=== PATIENT | male | born 1985 | race Caucasian/White ===

== ENCOUNTER 2018-08-20 10:03 | Emergency (ER) | payer BC, MEDICAID ==
[~2018-08-20] VITALS: Ht 182.9 cm; Wt 72.0 kg
[~2018-08-20 10:03] MED LIST: HYDR-4383 PO; ONDA8TAB13 PO; PENI500T2 PO
[2018-08-20 10:05] VITALS: BP 115/75
[2018-08-20] MEDS ORDERED: CLIN300C85 PO (11:16)
== END 2018-08-20 11:35 | disposition home or self-care (01) ==
LOC: ER 10:04
DX: R21 Rash and other nonspecific skin eruption (principal); Z90.49 Acquired absence of other specified parts of digestive tract; Z79.899 Other long term (current) drug therapy
CPT/HCPCS: 99283

== ENCOUNTER 2018-08-23 11:54 | Emergency (ER) | payer BC ==
[~2018-08-23] VITALS: Ht 182.9 cm; Wt 66.9 kg
[~2018-08-23 11:54] MED LIST changes: +CLIN300C85 PO
[2018-08-23] MEDS ORDERED: PRED20TA PO (12:35)
[2018-08-23 12:48] VITALS: BP 123/70
== END 2018-08-23 12:45 | disposition home or self-care (01) ==
LOC: ER 11:54
DX: S30.860A Insect bite (nonvenomous) of lower back and pelvis, initial encounter (principal); S50.861A Insect bite (nonvenomous) of right forearm, initial encounter; R00.0 Tachycardia, unspecified; F11.10 Opioid abuse, uncomplicated; Z79.899 Other long term (current) drug therapy; Z90.49 Acquired absence of other specified parts of digestive tract; W57.XXXA Bitten or stung by nonvenomous insect and other nonvenomous arthropods, initial encounter; Y93.89 Activity, other specified; Y92.89 Other specified places as the place of occurrence of the external cause; Y99.8 Other external cause status
CPT/HCPCS: 99283

== ENCOUNTER 2022-11-18 13:57 | Inpatient (IN) | payer BC, MEDICAID, SELFPAY ==
[~2022-11-18] VITALS: Ht 182.9 cm; Wt 68.2 kg
[~2022-11-18 13:57] MED LIST changes: +CLIN-97 PO; -CLIN300C85 PO
[2022-11-18] MEDS ORDERED: normal saline 1000ml 1,000 ML IV ONE ×3 (14:20→16:10)
--- NOTE | 2022-11-18 15:00 | NUR ---
PT IS AO2 SPEAKS SOFTLY. PERRLA 4MM. SKIN HAS SEVERAL HEALED WOUNDS BILATERALLY. RESP EVEN UNLABORED.
[2022-11-18] MEDS ORDERED: ondansetron/PF 4mg/2ml inj IV ONE ×2 (15:10→16:50)
[2022-11-18 16:07] LABS: EOSINOPHILS % (AUTO) 0 % (0-6); MEAN PLATELET VOLUME 7.4 FL (7.4-10.4)
[2022-11-18 16:08] LABS: BASOPHILS % (AUTO) 0.1 % (0-1); HEMATOCRIT 52.3 % (42.0-52.0); LYMPHOCYTES % (AUTO) 3.7 % (21-51); MEAN CORPUSCULAR HEMOGLOBIN 29.8 PG (27.0-31.0); MEAN CORPUSCULAR HGB CONC 34.4 g/dL (33.0-36.5); MEAN CORPUSCULAR VOLUME 86.5 FL (78-98); MONOCYTES # (AUTO) 2.7 X10'3 (0-0.9); MONOCYTES % (AUTO) 9.8 % (2-12); NEUTROPHILS # (AUTO) 23.3 X10'3 (1.8-7.7); NEUTROPHILS % (AUTO) 86.4 % (42-75); PLATELET COUNT 599 X10'3 (140-440); RED BLOOD COUNT 6.04 X10'6 (4.70-6.10); RED CELL DISTRIBUTION WIDTH 13.4 % (11.5-14.5)
[2022-11-18 16:29] LABS: ALANINE AMINOTRANSFERASE 38 U/L (12-78); ALBUMIN 5.7 G/DL (3.4-5.0); ALBUMIN/GLOBULIN RATIO 1.1 (1.1-1.5); ALKALINE PHOSPHATASE 114 IU/L (46-116); ANION GAP 17 (8-16); ASPARTATE AMINO TRANSFERASE 22 U/L (10-37); BILIRUBIN,TOTAL 0.7 MG/DL (0.1-1.0); BLOOD UREA NITROGEN 32 MG/DL (7-18); BUN/CREATININE RATIO 13.6 (5.4-32.0); CALCIUM 10.6 MG/DL (8.5-10.1); CHLORIDE 91 MMOL/L (99-107); CREATININE 2.36 MG/DL (0.60-1.10); ETHANOL < 0.010 GM/DL (0.0-0.010); GLUCOSE 152 MG/DL (70-104); SODIUM 141 MMOL/L (135-145); TOTAL CARBON DIOXIDE 32.6 MMOL/L (24-32); TOTAL PROTEIN 10.8 G/DL (6.4-8.2); eGFR 31 ML/MIN
[2022-11-18 16:33] LABS: PLATELET ESTIMATE INCREASED; TOTAL CELLS COUNTED 100
--- NOTE | 2022-11-18 16:34 | NUR ---
PT VOMITED SECOND TIME APPROX 200ML OF GREEN LIQUID. PROVIDER AWARE. AWAITING ORDERS
[2022-11-18 16:38] LABS: POTASSIUM 3.1 MMOL/L (3.5-5.1)
[2022-11-18] MEDS ORDERED: CefTRIAXone/D5W-Rocephin 1gm 50 ML IV ONE (16:50)
[2022-11-18] MEDS ORDERED: potassium Cl 10 mEq/100mL bag IV ONE (16:55)
[2022-11-18 17:14] LABS: MAGNESIUM 2.4 MG/DL (1.5-2.4)
[2022-11-18] MEDS ORDERED: iohexol 300mg/ml 100ml inj. ONE (17:27)
--- NOTE | 2022-11-18 18:21 | NUR ---
UNSUCCESSFUL ATTEMPT AT STRAIGHT CATH. PROVIDER TO BE NOTIFIED.
--- NOTE | 2022-11-18 18:35 | NUR ---
report to cindy for continuation of care
[2022-11-18 19:07] LABS: CLARITY,URINE CLOUDY (Clear); COLOR,URINE YELLOW (Yellow); GLUCOSE, URINE NEGATIVE (Neg); KETONES,URINE 40 mg/dl (Neg); LEUKOCYTE ESTERASE ,URINE NEGATIVE (Neg); NITRITES, URINE NEGATIVE (Neg); OCCULT BLOOD,URINE LARGE (Neg); PH,URINE 5.5 (4.8-8.0); PROTEIN,URINE 100 mg/dl (Neg); UROBILINOGEN,URINE 0.2 E.U/dL (0.2-1.0)
[2022-11-18 19:15] LABS: UA COLLECTION TYPE URINAL
[2022-11-18 19:16] LABS: BACTERIA,URINE 2+ /HPF (Neg); WBC,URINE 0-4 /HPF (0-4)
[2022-11-18 19:17] LABS: AMORPHOUS URATES 1+; COARSE GRANULAR CAST 0-3 /LPF (NEGATIVE); FINE GRANULAR CAST 0-3 /LPF (NEGATIVE); HYALINE CASTS 0-3 /LPF (NEGATIVE); MUCUS STRANDS FEW /LPF (Neg); SQUAMOUS EPITHELIAL CELL,UR FEW /LPF (FEW)
[2022-11-18 19:19] LABS: URINE AMPHETAMINE SCREEN NEGATIVE (Neg); URINE BARBITUATE SCREEN NEGATIVE (Neg); URINE BENZODIAZEPINES SCREEN NEGATIVE (Neg); URINE CANNABINOID SCREEN POSITIVE (Neg); URINE COCAINE SCREEN NEGATIVE (Neg); URINE METHADONE SCREEN NEGATIVE (Neg); URINE OPIATE SCREEN NEGATIVE (Neg); URINE PHENCYCLIDINE SCREEN NEGATIVE (Neg)
[2022-11-18] MEDS ORDERED: normal saline 1000ml 1,000 ML IV SCH (19:35)
[2022-11-18] MEDS ORDERED: metroNIDAZOLE-Flagyl 750mg/NS 150 ML IV ONE (19:55)
[2022-11-18] MEDS ORDERED: potassium CL 10mEq/100ml bag 100 ML IV ONE (20:00)
[2022-11-18] MEDS ORDERED: LIDOcaine 2% 10ml TOPICAL JELLY (Urojet) MM ONE (20:40)
--- NOTE | 2022-11-18 20:53 | NUR ---
CANCEL NASAL GASTRIC TUBE PER DR. MARQUEZ AT BEDSIDE.
[2022-11-18] MEDS ORDERED: magnesium 4gm in 100ml NS 100 ML IV PRN (21:05)
[2022-11-18] MEDS ORDERED: acetaminophen 325mg tablet PO PRN (21:05)
[2022-11-18] MEDS ORDERED: ondansetron/PF 4mg/2ml inj IV PRN (21:05)
[2022-11-18] MEDS ORDERED: potassium Cl 40MEQ/1/2NS 520ml 520 ML IV PRN (21:05)
[2022-11-18] MEDS ORDERED: morphine 2 MG/ML inj. syringe IV PRN ×2 (21:05)
[2022-11-18] MEDS ORDERED: BUPR1FIL3 SL (21:37)
[2022-11-18] MEDS: normal saline 1000ml 1,000 ML IV SCH (21:42)
[2022-11-19] MEDS: normal saline 1000ml 1,000 ML IV SCH ×2 (03:41→10:42)
[2022-11-19] MEDS ORDERED: IBUP-1985 PO (04:00)
[2022-11-19] MEDS ORDERED: ACET325T55 PO (04:10)
[2022-11-19 05:18] LABS: ALANINE AMINOTRANSFERASE 24 U/L (12-78); ALBUMIN 3.3 G/DL (3.4-5.0); ALBUMIN/GLOBULIN RATIO 1.1 (1.1-1.5); ALKALINE PHOSPHATASE 66 IU/L (46-116); ANION GAP 8 (8-16); ASPARTATE AMINO TRANSFERASE 17 U/L (10-37); BILIRUBIN,TOTAL 0.5 MG/DL (0.1-1.0); BLOOD UREA NITROGEN 16 MG/DL (7-18); BUN/CREATININE RATIO 19.3 (5.4-32.0); CALCIUM 7.2 MG/DL (8.5-10.1); CHLORIDE 112 MMOL/L (99-107); CREATININE 0.83 MG/DL (0.60-1.10); GLUCOSE 112 MG/DL (70-104); MAGNESIUM 1.9 MG/DL (1.5-2.4); POTASSIUM 3.3 MMOL/L (3.5-5.1); SODIUM 148 MMOL/L (135-145); TOTAL PROTEIN 6.4 G/DL (6.4-8.2); eGFR > 90 ML/MIN
[2022-11-19 07:50] LABS: BASOPHILS % (AUTO) 0.3 % (0-1); EOSINOPHILS % (AUTO) 0 % (0-6); HEMATOCRIT 37.8 % (42.0-52.0); HEMOGLOBIN 12.8 g/dl (14.0-17.9); LYMPHOCYTES # (AUTO) 1.6 X10'3 (1.1-4.8); LYMPHOCYTES % (AUTO) 12.2 % (21-51); MEAN CORPUSCULAR HEMOGLOBIN 29.5 PG (27.0-31.0); MEAN CORPUSCULAR HGB CONC 33.9 g/dL (33.0-36.5); MEAN CORPUSCULAR VOLUME 86.9 FL (78-98); MEAN PLATELET VOLUME 7.3 FL (7.4-10.4); MONOCYTES # (AUTO) 1.4 X10'3 (0-0.9); MONOCYTES % (AUTO) 10.6 % (2-12); NEUTROPHILS # (AUTO) 9.9 X10'3 (1.8-7.7); NEUTROPHILS % (AUTO) 76.9 % (42-75); PLATELET COUNT 369 X10'3 (140-440); RED BLOOD COUNT 4.35 X10'6 (4.70-6.10); RED CELL DISTRIBUTION WIDTH 13.6 % (11.5-14.5); WHITE BLOOD COUNT 12.8 X10'3 (4.5-11.0)
[2022-11-19] MEDS: K and/or MAG REPLACEMENT MC SCH ×3 (08:00→20:00)
--- NOTE | 2022-11-19 08:29 | NUR ---
Received patient report from Chidi FISHER in ER all questions answered. Chidi FISHER will go through patients belongings prior to coming to the floor. Patient has no NG tube and denies any nausea and vomiting. Will assume patient care when patient comes to the floor.
[2022-11-19 10:29] VITALS: BP 125/66
[2022-11-19] MEDS: heparin, porcine 5000 units/ml vial SQ SCH ×2 (10:42→20:34)
[2022-11-19] MEDS: buprenorphine/naloxone 8MG-2MG SUBlingual film SL SCH ×3 (11:23→20:34)
[2022-11-19] MEDS: CefTRIAXone/D5W-Rocephin 1gm 50 ML IV SCH (11:24)
[2022-11-19] MEDS ORDERED: potassium Cl 20 mEq SR tablet PO PRN (12:45)
[2022-11-19] MEDS ORDERED: magnesium 4gm in 100ml NS 100 ML IV PRN (12:45)
[2022-11-19] MEDS ORDERED: potassium Cl 40MEQ/1/2NS 520ml 520 ML IV PRN (12:45)
[2022-11-19] MEDS ORDERED: magnesium Cl slow-release 64mg tablet PO PRN (12:45)
[2022-11-19] MEDS: potassium Cl 20 mEq SR tablet PO PRN ×2 (13:18→20:34)
--- NOTE | 2022-11-19 13:19 | NUR ---
pt did not arrive to medical floor till about 10 am per primary nurse. pt got Suboxone 8 am dose at 1130 am due to waiting for medication. per pharmacist medication has to have at least 6 hrs between doses, pharmacist stated to non admin dose and nurse can give next dose when due.
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
[2022-11-19] MEDS: sodium chloride 0.45% 1,000 ML IV SCH (17:11)
[2022-11-19 18:00] VITALS: BP 124/76
--- NOTE | 2022-11-19 18:22 | NUR ---
Problems reprioritized. Patient report given, questions answered & plan of care reviewed with Ambar Villalta RN.
--- NOTE | 2022-11-19 18:30 | NUR ---
Patient in room [facility] 358. I have received report from DOREEN FISHER and had the opportunity to ask questions and assume patient care.
[2022-11-19 22:00] VITALS: BP 125/78
[2022-11-20] MEDS: sodium chloride 0.45% 1,000 ML IV SCH ×2 (05:19→18:24)
[2022-11-20 06:00] VITALS: BP 120/81
[2022-11-20 06:26] LABS: BASOPHILS % (AUTO) 0.5 % (0-1); EOSINOPHILS % (AUTO) 0.1 % (0-6); HEMATOCRIT 34.3 % (42.0-52.0); HEMOGLOBIN 11.6 g/dl (14.0-17.9); LYMPHOCYTES # (AUTO) 2.7 X10'3 (1.1-4.8); LYMPHOCYTES % (AUTO) 28.6 % (21-51); MEAN CORPUSCULAR HEMOGLOBIN 29.2 PG (27.0-31.0); MEAN CORPUSCULAR HGB CONC 33.7 g/dL (33.0-36.5); MEAN CORPUSCULAR VOLUME 86.9 FL (78-98); MEAN PLATELET VOLUME 7.5 FL (7.4-10.4); MONOCYTES % (AUTO) 10.2 % (2-12); NEUTROPHILS # (AUTO) 5.8 X10'3 (1.8-7.7); NEUTROPHILS % (AUTO) 60.6 % (42-75); PLATELET COUNT 337 X10'3 (140-440); RED BLOOD COUNT 3.95 X10'6 (4.70-6.10); RED CELL DISTRIBUTION WIDTH 13.2 % (11.5-14.5); WHITE BLOOD COUNT 9.5 X10'3 (4.5-11.0)
[2022-11-20 06:35] LABS: ALANINE AMINOTRANSFERASE 22 U/L (12-78); ALBUMIN 3.1 G/DL (3.4-5.0); ALBUMIN/GLOBULIN RATIO 1.1 (1.1-1.5); ALKALINE PHOSPHATASE 59 IU/L (46-116); ANION GAP 6 (8-16); ASPARTATE AMINO TRANSFERASE 16 U/L (10-37); BILIRUBIN,TOTAL 0.6 MG/DL (0.1-1.0); BLOOD UREA NITROGEN 7 MG/DL (7-18); BUN/CREATININE RATIO 12.5 (5.4-32.0); CALCIUM 7.7 MG/DL (8.5-10.1); CHLORIDE 105 MMOL/L (99-107); CREATININE 0.56 MG/DL (0.60-1.10); GLUCOSE 100 MG/DL (70-104); SODIUM 138 MMOL/L (135-145); TOTAL CARBON DIOXIDE 26.7 MMOL/L (24-32); eGFR > 90 ML/MIN
--- NOTE | 2022-11-20 06:35 | NUR ---
Problems reprioritized. Patient report given, questions answered & plan of care reviewed with DOREEN FISHER.
[2022-11-20 06:37] LABS: POTASSIUM 2.9 MMOL/L (3.5-5.1)
--- NOTE | 2022-11-20 07:04 | NUR ---
PAGER ID: [phone] MESSAGE: Christina Surg [phone] Re: [id number] Gordon Sr+ 2.9 will replace per protocol
[2022-11-20] MEDS: K and/or MAG REPLACEMENT MC SCH ×4 (08:00→20:00)
[2022-11-20] MEDS: CefTRIAXone/D5W-Rocephin 1gm 50 ML IV SCH (09:26)
[2022-11-20] MEDS: heparin, porcine 5000 units/ml vial SQ SCH ×2 (09:27→19:20)
--- NOTE | 2022-11-20 10:32 | NUR ---
Spoke to Jevon the pharmacist regarding patients Suboxone being given now due to no medication available earlier. She said it would be fine to give now and then again at 1300 per schedule
[2022-11-20] MEDS: buprenorphine/naloxone 8MG-2MG SUBlingual film SL SCH ×3 (10:36→21:30)
--- NOTE | 2022-11-20 11:18 | NUR ---
Met with patient in regards to substance use and to see if patient was interested in resources for treatment options. Patient declined resources.
[2022-11-20] MEDS: potassium Cl 20 mEq SR tablet PO SCH (13:03)
--- NOTE | 2022-11-20 14:52 | NUR ---
Patient talked with social worker psychiatric and changed his mind about wanting resources for treatment options. I met with patient again and he stated that he is interested in treatment options. Patient is currently getting Suboxone and doesn't feel like he is getting the recovery part that he needs to help him stay sober. I talked to patient about going to Dr Fletcher for MAT and getting into counseling there. I gave patient [facility] number and a list of rehabs. Patient has my card to call me with any questions.
--- NOTE | 2022-11-20 16:20 | NUR ---
PAGER ID: [phone] MESSAGE: Christina Surg [phone] Re: Gordon 358B Per social science research assistant you are not discharging 358B today please call to verify
[2022-11-20 18:00] VITALS: BP 131/79
--- NOTE | 2022-11-20 18:41 | NUR ---
Problems reprioritized. Patient report given, questions answered & plan of care reviewed with Cruz FISHER.
--- NOTE | 2022-11-20 18:50 | NUR ---
Patient in room [facility] 358. I have received report from DOREEN FISHER and had the opportunity to ask questions and assume patient care.
[2022-11-20 22:00] VITALS: BP 116/79
[2022-11-21] MEDS: sodium chloride 0.45% 1,000 ML IV SCH (05:31)
[2022-11-21 06:00] VITALS: BP 115/68
--- NOTE | 2022-11-21 06:45 | NUR ---
Problems reprioritized. Patient report given, questions answered & plan of care reviewed with DOREEN FISHER.
[2022-11-21] MEDS: K and/or MAG REPLACEMENT MC SCH ×2 (08:00)
[2022-11-21 08:47] LABS: ALANINE AMINOTRANSFERASE 21 U/L (12-78); ALKALINE PHOSPHATASE 57 IU/L (46-116); ANION GAP 7 (8-16); ASPARTATE AMINO TRANSFERASE 22 U/L (10-37); BILIRUBIN,TOTAL 0.4 MG/DL (0.1-1.0); BLOOD UREA NITROGEN 6 MG/DL (7-18); CALCIUM 7.9 MG/DL (8.5-10.1); CHLORIDE 106 MMOL/L (99-107); GLUCOSE 114 MG/DL (70-104); MAGNESIUM 2.1 MG/DL (1.5-2.4); POTASSIUM 3.3 MMOL/L (3.5-5.1); SODIUM 138 MMOL/L (135-145); TOTAL CARBON DIOXIDE 24.6 MMOL/L (24-32); TOTAL PROTEIN 6.1 G/DL (6.4-8.2); eGFR > 90 ML/MIN
[2022-11-21 09:05] LABS: BASOPHILS % (AUTO) 0.4 % (0-1); EOSINOPHILS % (AUTO) 0.1 % (0-6); HEMATOCRIT 37.7 % (42.0-52.0); LYMPHOCYTES # (AUTO) 2.4 X10'3 (1.1-4.8); LYMPHOCYTES % (AUTO) 34.1 % (21-51); MEAN CORPUSCULAR HEMOGLOBIN 29.8 PG (27.0-31.0); MEAN CORPUSCULAR HGB CONC 34.4 g/dL (33.0-36.5); MEAN CORPUSCULAR VOLUME 86.5 FL (78-98); MEAN PLATELET VOLUME 7.5 FL (7.4-10.4); MONOCYTES # (AUTO) 0.6 X10'3 (0-0.9); MONOCYTES % (AUTO) 8.8 % (2-12); NEUTROPHILS % (AUTO) 56.6 % (42-75); PLATELET COUNT 351 X10'3 (140-440); RED BLOOD COUNT 4.35 X10'6 (4.70-6.10); RED CELL DISTRIBUTION WIDTH 13.5 % (11.5-14.5)
[2022-11-21] MEDS: potassium Cl 20 mEq SR tablet PO SCH (09:43)
[2022-11-21] MEDS: buprenorphine/naloxone 8MG-2MG SUBlingual film SL SCH ×2 (09:43→13:23)
[2022-11-21] MEDS: CefTRIAXone/D5W-Rocephin 1gm 50 ML IV SCH (09:43)
[2022-11-21] MEDS: heparin, porcine 5000 units/ml vial SQ SCH (09:44)
[2022-11-21 10:00] VITALS: BP 106/64
[2022-11-21] MEDS ORDERED: potassium Cl 20 mEq SR tablet PO STA (12:14)
--- NOTE | 2022-11-21 14:00 | NUR ---
Patient discharge instructions reviewed with patient and his Gila at bedside. Patients IV dc'd cannula intact. Patient escorted to lobby where was waiting with the vehicle. Patient stated he had all his belongings.
== END 2022-11-21 14:16 | disposition home or self-care (01) | DRG 422 ==
LOC: ER 13:57 → ED HOLD 21:06 → EDBEDREQ 11-19 00:17 → SUR 3N 11-19 09:09
PROVIDERS: ADMIT Internal Medicine; ATTEND Family Medicine
PROC: BW211ZZ Computerized Tomography (CT Scan) of Abdomen and Pelvis using Low Osmolar Contrast (ICD-10-PCS; principal; 2022-11-18)
DX: E86.0 Dehydration (principal); N17.0 Acute kidney failure with tubular necrosis; G25.3 Myoclonus; F11.23 Opioid dependence with withdrawal; F17.200 Nicotine dependence, unspecified, uncomplicated; E87.6 Hypokalemia; G89.4 Chronic pain syndrome; Z90.49 Acquired absence of other specified parts of digestive tract
CPT/HCPCS: 36415; 71045; 74177; 80053; 80305; 80320; 81001; 83605; 83735; 83880; 84132; 84145; 84484; 85007; 85025; 87040; 87502; 87503; 87635; 93005; 96365; 99285; C9803; G0378; J0696; J1644; J2405; J3480; J3490; J7030; Q9967; U0003

== ENCOUNTER 2023-04-26 15:11 | Inpatient (IN) | payer MEDICAID ==
[~2023-04-26] VITALS: Ht 182.9 cm; Wt 68.2 kg
[~2023-04-26 15:11] MED LIST changes: +ACET325T55 PO; +BUPR1FIL3 SL; -CLIN-97 PO; -HYDR-4383 PO; +IBUP-1985 PO; -ONDA8TAB13 PO; -PENI500T2 PO
[2023-04-26] MEDS ORDERED: normal saline 1000ML IV soln IV ONE (16:45)
[2023-04-26 17:28] LABS: BASOPHILS % (AUTO) 0.2 % (0-1); EOSINOPHILS % (AUTO) 0 % (0-6); HEMATOCRIT 50.1 % (42.0-52.0); MEAN CORPUSCULAR HEMOGLOBIN 29.2 PG (27.0-31.0); MEAN PLATELET VOLUME 7.9 FL (7.4-10.4); MONOCYTES # (AUTO) 2.1 X10'3 (0-0.9); MONOCYTES % (AUTO) 11.7 % (2-12); NEUTROPHILS # (AUTO) 13.7 X10'3 (1.8-7.7); NEUTROPHILS % (AUTO) 77.1 % (42-75); PLATELET COUNT 531 X10'3 (140-440); RED BLOOD COUNT 5.82 X10'6 (4.70-6.10); RED CELL DISTRIBUTION WIDTH 14.2 % (11.5-14.5); WHITE BLOOD COUNT 17.8 X10'3 (4.5-11.0)
[2023-04-26 17:34] LABS: ALANINE AMINOTRANSFERASE 29 U/L (12-78); ALBUMIN 5.5 G/DL (3.4-5.0); ALBUMIN/GLOBULIN RATIO 1.2 (1.1-1.5); ALKALINE PHOSPHATASE 92 IU/L (46-116); ANION GAP 15 (8-16); ASPARTATE AMINO TRANSFERASE 11 U/L (10-37); BILIRUBIN,TOTAL 0.7 MG/DL (0.1-1.0); BLOOD UREA NITROGEN 35 MG/DL (7-18); BUN/CREATININE RATIO 17.9 (10.0-20.0); CALCIUM 10.4 MG/DL (8.5-10.1); CHLORIDE 93 MMOL/L (99-107); CREATININE 1.96 MG/DL (0.60-1.10); ETHANOL < 0.010 GM/DL (0.0-0.010); GLUCOSE 133 MG/DL (70-104); LIPASE 87 U/L (73-393); MAGNESIUM 2.5 MG/DL (1.5-2.4); SODIUM 143 MMOL/L (135-145); TOTAL CARBON DIOXIDE 34.6 MMOL/L (24-32); eGFR 39 ML/MIN
[2023-04-26 17:35] LABS: POTASSIUM 2.5 MMOL/L (3.5-5.1)
[2023-04-26] MEDS ORDERED: D5-1/2NS w/20 mEq potassium per 1000ml IV ONE (17:55)
[2023-04-26] MEDS ORDERED: IOHEXOL 12MG/ML oral solution 500 ML BOTTLE PO ONE (17:55)
[2023-04-26] MEDS ORDERED: ondansetron/PF 4mg/2ml inj IV ONE (18:25)
--- NOTE | 2023-04-26 19:04 | NUR ---
pt encouraged to produce urine sample, thus far he has been unable
--- NOTE | 2023-04-26 19:16 | NUR ---
DR CRUZ NOTIFIED THAT PT VOMITED UP ORAL CONTRAST. PER MD JUST GO AHEAD WITH CT SCAN WITHOUT THE ORAL CONTRAST
[2023-04-26] MEDS ORDERED: LORazepam 2 mg/ml vial IV ONE (20:00)
[2023-04-26] MEDS ORDERED: pantoprazole 40MG/NS 100ML BAG 100 ML IV ONE (20:20)
[2023-04-26] MEDS ORDERED: acetaminophen 325mg tablet PO ONE (21:35)
[2023-04-26] MEDS ORDERED: normal saline 1000ML IV soln IVB ONE (22:15)
[2023-04-26] MEDS ORDERED: buprenorphine/naloxone 8MG-2MG SUBlingual film SL STA (22:16)
[2023-04-26] MEDS ORDERED: magnesium 2GM in 50ml NS 50 ML IV PRN (22:40)
[2023-04-26] MEDS ORDERED: ondansetron/PF 4mg/2ml inj IV PRN (22:40)
[2023-04-26] MEDS ORDERED: magnesium hydroxide 30ml (MOM) UD suspension PO PRN (22:40)
[2023-04-26] MEDS ORDERED: magnesium 4gm in 100ml NS 100 ML IV PRN (22:40)
[2023-04-26] MEDS ORDERED: mag hydrox/Alum hydrox/simeth 30ml oral suspension PO PRN (22:40)
[2023-04-26] MEDS ORDERED: acetaminophen 325mg tablet PO PRN (22:40)
[2023-04-26] MEDS ORDERED: potassium Cl 40MEQ/1/2NS 520ml 520 ML IV PRN (22:40)
[2023-04-26] MEDS: potassium Cl 20mEq in NS 1,000 ML IV SCH (23:16)
[2023-04-27 00:30] VITALS: BP 111/70
[2023-04-27] MEDS: potassium Cl 20mEq in NS 1,000 ML IV SCH ×3 (04:22→17:22)
[2023-04-27 04:40] LABS: COLOR,URINE YELLOW (Yellow); GLUCOSE, URINE 250 mg/dl (Neg); KETONES,URINE 15 mg/dl (Neg); LEUKOCYTE ESTERASE ,URINE NEGATIVE (Neg); NITRITES, URINE NEGATIVE (Neg); OCCULT BLOOD,URINE NEGATIVE (Neg); PROTEIN,URINE 100 mg/dl (Neg); UROBILINOGEN,URINE 0.2 E.U/dL (0.2-1.0)
[2023-04-27 04:46] LABS: CLARITY,URINE SLIGHTLY CLOUDY (Clear); UA COLLECTION TYPE CLN CATCH MIDSTREAM
[2023-04-27 04:47] LABS: BACTERIA,URINE FEW /HPF (Neg); RBC,URINE NONE SEEN /HPF (0-2); SQUAMOUS EPITHELIAL CELL,UR FEW /LPF (FEW); TRANSITIONAL EPI CELLS,URINE FEW /HPF
[2023-04-27 04:48] LABS: MUCUS STRANDS MANY /LPF (Neg)
[2023-04-27 04:58] LABS: URINE AMPHETAMINE SCREEN NEGATIVE (Neg); URINE BARBITUATE SCREEN NEGATIVE (Neg); URINE BENZODIAZEPINES SCREEN NEGATIVE (Neg); URINE CANNABINOID SCREEN POSITIVE (Neg); URINE COCAINE SCREEN NEGATIVE (Neg); URINE METHADONE SCREEN NEGATIVE (Neg); URINE OPIATE SCREEN NEGATIVE (Neg); URINE PHENCYCLIDINE SCREEN NEGATIVE (Neg)
[2023-04-27 07:31] LABS: ALANINE AMINOTRANSFERASE 18 U/L (12-78); ALBUMIN 3.4 G/DL (3.4-5.0); ALBUMIN/GLOBULIN RATIO 1.2 (1.1-1.5); ALKALINE PHOSPHATASE 58 IU/L (46-116); ANION GAP 12 (8-16); ASPARTATE AMINO TRANSFERASE 6 U/L (10-37); BILIRUBIN,TOTAL 0.7 MG/DL (0.1-1.0); BLOOD UREA NITROGEN 16 MG/DL (7-18); BUN/CREATININE RATIO 21.3 (10.0-20.0); CALCIUM 7.9 MG/DL (8.5-10.1); CHLORIDE 103 MMOL/L (99-107); CREATININE 0.75 MG/DL (0.60-1.10); GLUCOSE 104 MG/DL (70-104); MAGNESIUM 1.9 MG/DL (1.5-2.4); SODIUM 142 MMOL/L (135-145); TOTAL CARBON DIOXIDE 26.9 MMOL/L (24-32); TOTAL PROTEIN 6.3 G/DL (6.4-8.2); eGFR > 90 ML/MIN
[2023-04-27 07:41] LABS: POTASSIUM 2.8 MMOL/L (3.5-5.1)
[2023-04-27] MEDS: K and/or MAG REPLACEMENT MC SCH ×2 (07:50→18:40)
[2023-04-27] MEDS: heparin, porcine 5000 units/ml vial SQ SCH ×2 (08:21→19:53)
[2023-04-27] MEDS: docusate sod 100mg capsule PO SCH ×2 (08:21→19:18)
[2023-04-27] MEDS: buprenorphine/naloxone 8MG-2MG SUBlingual film SL SCH ×3 (08:22→19:53)
[2023-04-27 08:31] LABS: BASOPHILS % (AUTO) 0.3 % (0-1); EOSINOPHILS % (AUTO) 0 % (0-6); HEMATOCRIT 36.8 % (42.0-52.0); HEMOGLOBIN 12.2 g/dl (14.0-17.9); LYMPHOCYTES # (AUTO) 2.7 X10'3 (1.1-4.8); LYMPHOCYTES % (AUTO) 18.2 % (21-51); MEAN CORPUSCULAR HEMOGLOBIN 28.8 PG (27.0-31.0); MEAN CORPUSCULAR HGB CONC 33.2 g/dL (33.0-36.5); MEAN CORPUSCULAR VOLUME 86.7 FL (78-98); MEAN PLATELET VOLUME 7.2 FL (7.4-10.4); MONOCYTES # (AUTO) 1.7 X10'3 (0-0.9); MONOCYTES % (AUTO) 11.8 % (2-12); NEUTROPHILS # (AUTO) 10.2 X10'3 (1.8-7.7); NEUTROPHILS % (AUTO) 69.7 % (42-75); PLATELET COUNT 372 X10'3 (140-440); RED BLOOD COUNT 4.25 X10'6 (4.70-6.10); RED CELL DISTRIBUTION WIDTH 13.8 % (11.5-14.5); WHITE BLOOD COUNT 14.6 X10'3 (4.5-11.0)
[2023-04-27] MEDS: potassium Cl 40MEQ/1/2NS 520ml 520 ML IV SCH ×2 (10:29→12:30)
[2023-04-27 18:00] VITALS: BP 110/72
[2023-04-27] MEDS ORDERED: benzocaine/menthol oral lozeng 1 EACH BOX MM PRN (20:05)
[2023-04-27] MEDS ORDERED: HALLS - SOOTHE MENTHOL 1.8 MG cough drop LOZENGE MM PRN ×2 (20:11)
[2023-04-27 22:00] VITALS: BP 107/68
[2023-04-28 02:00] VITALS: BP 123/78
[2023-04-28] MEDS: potassium Cl 20mEq in NS 1,000 ML IV SCH (03:20)
[2023-04-28 06:00] VITALS: BP 119/76
--- NOTE | 2023-04-28 06:21 | NUR ---
Problems reprioritized. Patient report given, questions answered & plan of care reviewed with SAMANTA FISHER. Addendum: 04/28/23 at 0621 by Ame Toro RN Amended: Links added.
--- NOTE | 2023-04-28 06:26 | NUR ---
Patient in room PCU 3026. I have received report from [employer] and had the opportunity to ask questions and assume patient care.
[2023-04-28] MEDS: K and/or MAG REPLACEMENT MC SCH (07:54)
[2023-04-28] MEDS: heparin, porcine 5000 units/ml vial SQ SCH (07:58)
[2023-04-28] MEDS: docusate sod 100mg capsule PO SCH (07:58)
[2023-04-28] MEDS: buprenorphine/naloxone 8MG-2MG SUBlingual film SL SCH (07:58)
[2023-04-28 10:30] LABS: BASOPHILS % (AUTO) 0.4 % (0-1); EOSINOPHILS % (AUTO) 0 % (0-6); HEMATOCRIT 34.4 % (42.0-52.0); HEMOGLOBIN 11.6 g/dl (14.0-17.9); LYMPHOCYTES # (AUTO) 2.2 X10'3 (1.1-4.8); LYMPHOCYTES % (AUTO) 26.8 % (21-51); MEAN CORPUSCULAR HEMOGLOBIN 29.4 PG (27.0-31.0); MEAN CORPUSCULAR HGB CONC 33.8 g/dL (33.0-36.5); MEAN CORPUSCULAR VOLUME 86.9 FL (78-98); MEAN PLATELET VOLUME 7.8 FL (7.4-10.4); MONOCYTES # (AUTO) 0.9 X10'3 (0-0.9); MONOCYTES % (AUTO) 10.6 % (2-12); NEUTROPHILS # (AUTO) 5.1 X10'3 (1.8-7.7); NEUTROPHILS % (AUTO) 62.2 % (42-75); PLATELET COUNT 298 X10'3 (140-440); RED BLOOD COUNT 3.96 X10'6 (4.70-6.10); RED CELL DISTRIBUTION WIDTH 13.9 % (11.5-14.5); WHITE BLOOD COUNT 8.1 X10'3 (4.5-11.0)
[2023-04-28 10:33] LABS: ALANINE AMINOTRANSFERASE 26 U/L (12-78); ALBUMIN 3.2 G/DL (3.4-5.0); ALBUMIN/GLOBULIN RATIO 1.2 (1.1-1.5); ALKALINE PHOSPHATASE 57 IU/L (46-116); ANION GAP 8 (8-16); ASPARTATE AMINO TRANSFERASE 15 U/L (10-37); BILIRUBIN,TOTAL 0.6 MG/DL (0.1-1.0); BLOOD UREA NITROGEN 7 MG/DL (7-18); BUN/CREATININE RATIO 11.9 (10.0-20.0); CALCIUM 8.2 MG/DL (8.5-10.1); CHLORIDE 105 MMOL/L (99-107); CREATININE 0.59 MG/DL (0.60-1.10); GLUCOSE 97 MG/DL (70-104); MAGNESIUM 1.9 MG/DL (1.5-2.4); POTASSIUM 3.5 MMOL/L (3.5-5.1); SODIUM 137 MMOL/L (135-145); TOTAL CARBON DIOXIDE 24.1 MMOL/L (24-32); TOTAL PROTEIN 5.9 G/DL (6.4-8.2); eGFR > 90 ML/MIN
--- NOTE | 2023-04-28 10:48 | NUR ---
RE: [id number], Gordon, labs have resulted Ro
[2023-04-28 11:22] VITALS: BP 125/77
--- NOTE | 2023-04-28 12:24 | NUR ---
Reviewed discharge instructions with patient and spouse. Patient verbalized understanding. Patient showered, dressed and gathered his belongings for discharge. Patient is accompanied by his spouse. Patient and spouse were escorted to the elevator. Patient is able to ambulate independently and does not have any complaints or concerns at this time.
== END 2023-04-28 12:20 | disposition home or self-care (01) | DRG 422 ==
LOC: ER 15:12 → ED HOLD 22:40 → PCU 3S 23:57
PROVIDERS: ADMIT Internal Medicine; ATTEND Family Medicine
DX: E87.6 Hypokalemia (principal); E86.0 Dehydration; N17.0 Acute kidney failure with tubular necrosis; E87.20 Acidosis, unspecified; D72.829 Elevated white blood cell count, unspecified; Z90.49 Acquired absence of other specified parts of digestive tract
CPT/HCPCS: 36415; 74018; 74176; 80053; 80305; 80320; 81001; 83605; 83690; 83735; 85025; 87081; 87088; 99285; A4349; A6258; C9113; G0378; J1644; J2060; J2405; J3480; J7030

== ENCOUNTER 2023-08-23 22:17 | Inpatient (IN) | payer MEDICAID, OTHER ==
[~2023-08-23] VITALS: Ht 182.9 cm; Wt 66.3 kg
[~2023-08-23 22:17] MED LIST changes: -ACET325T55 PO; -IBUP-1985 PO
[2023-08-23] MEDS ORDERED: LORazepam 2 mg/ml vial IV ONE (22:35)
[2023-08-23] MEDS ORDERED: thiamine 100mg/ml 2ml inj. IV ONE (22:35)
--- NOTE | 2023-08-23 22:40 | NUR ---
pt HR varies between normal sinus rhythm in 60-70s up to SVT in 160s and changes every couple minutes. dr byron cruz.
[2023-08-23 23:05] LABS: INR 1.1 INR; PROTHROMBIN TIME 11.7 SECONDS (9.0-12.0)
[2023-08-23 23:07] LABS: EOSINOPHILS % (AUTO) 0 % (0-6); LYMPHOCYTES % (AUTO) 4.5 % (21-51); MONOCYTES # (AUTO) 2.2 X10'3 (0-0.9); NEUTROPHILS # (AUTO) 22.4 X10'3 (1.8-7.7)
[2023-08-23 23:08] LABS: BASOPHILS % (AUTO) 0 % (0-1); HEMATOCRIT 54.7 % (42.0-52.0); LYMPHOCYTES # (AUTO) 1.2 X10'3 (1.1-4.8); MEAN CORPUSCULAR HEMOGLOBIN 29.4 PG (27.0-31.0); MEAN CORPUSCULAR HGB CONC 34.2 g/dL (33.0-36.5); MEAN CORPUSCULAR VOLUME 86.1 FL (78-98); MONOCYTES % (AUTO) 8.4 % (2-12); NEUTROPHILS % (AUTO) 87.1 % (42-75); PLATELET COUNT 620 X10'3 (140-440); RED BLOOD COUNT 6.35 X10'6 (4.70-6.10); RED CELL DISTRIBUTION WIDTH 13.7 % (11.5-14.5)
--- NOTE | 2023-08-23 23:09 | NUR ---
OFFICER AT BEDSIDE
[2023-08-23] MEDS ORDERED: CefTRIAXone/D5W-Rocephin 1gm 50 ML IV ONE (23:10)
[2023-08-23] MEDS ORDERED: normal saline 1000ML IV soln IVB ONE ×3 (23:10→23:55)
[2023-08-23 23:16] LABS: HEMOGLOBIN 18.7 g/dl (14.0-17.9); WHITE BLOOD COUNT 25.8 X10'3 (4.5-11.0)
[2023-08-23 23:21] LABS: ALANINE AMINOTRANSFERASE 32 U/L (12-78); ALBUMIN 5.6 G/DL (3.4-5.0); ALBUMIN/GLOBULIN RATIO 1.1 (1.1-1.5); ALKALINE PHOSPHATASE 113 IU/L (46-116); ANION GAP 19 (8-16); ASPARTATE AMINO TRANSFERASE 17 U/L (10-37); BILIRUBIN,TOTAL 0.9 MG/DL (0.1-1.0); BLOOD UREA NITROGEN 41 MG/DL (7-18); BUN/CREATININE RATIO 10.1 (10.0-20.0); CALCIUM 10.7 MG/DL (8.5-10.1); CHLORIDE 86 MMOL/L (99-107); CREATININE 4.06 MG/DL (0.60-1.10); GLUCOSE 247 MG/DL (70-104); SODIUM 142 MMOL/L (135-145); TOTAL CARBON DIOXIDE 37.5 MMOL/L (24-32); TOTAL PROTEIN 10.6 G/DL (6.4-8.2); eCRCL 24 ML/MIN; eGFR 17 ML/MIN
[2023-08-23 23:24] LABS: POTASSIUM 2.7 MMOL/L (3.5-5.1)
[2023-08-23 23:25] LABS: ETHANOL < 10 MG/DL (<10)
[2023-08-23] MEDS ORDERED: LidoCAINE 2% Topical Jelly 11mL syringe TOP ONE (23:25)
[2023-08-23 23:43] LABS: TOTAL CELLS COUNTED 100
[2023-08-23 23:44] LABS: PLATELET ESTIMATE INCREASED
[2023-08-23] MEDS: potassium CL 10mEq/100ml bag 100 ML IV SCH (23:49)
[2023-08-23 23:51] LABS: SCHISTOCYTES FEW
[2023-08-23 23:52] LABS: HYPERSEGMENTED NEUTROPHILS FEW; LARGE PLATELETS FEW
[2023-08-24] VITALS (18 sets, daily range): BP systolic 115–150; BP diastolic 45–97; PULSE 64–128; RESP 19–42; TEMP 98.4–99.1; O2SAT 93–100
--- NOTE | 2023-08-24 00:04 | NUR ---
PT PROJECTILE VOMITED COFFEE GROUND EMESIS ACROSS THE ROOM AND ON SELF. PT CLEANED UP. RECIEVED VERBAL ORDER FROM DR MOTA FOR ANOTHER DOSE OF 1MG IV ATIVAN ONCE.
[2023-08-24 00:05] LABS: MAGNESIUM 2.6 MG/DL (1.5-2.4)
[2023-08-24] MEDS ORDERED: LORazepam 2 mg/ml vial IV ONE (00:05)
[2023-08-24] MEDS: potassium CL 10mEq/100ml bag 100 ML IV SCH ×2 (01:49→03:02)
--- NOTE | 2023-08-24 01:51 | NUR ---
MULTIPLE ATEMPTS FOR FORTE PLACEMENT BY THIS RN, MARY FISHER AND DR MOTA. PT STATES HAS ENLARGED PROSTATE. PLACED A CONDOM CATH ON PT INSTEAD. BLADDER SCAN 45MLS. DR MOTA AWARE.
[2023-08-24] MEDS ORDERED: normal saline 1000ml 1,000 ML IV ONE (03:00)
[2023-08-24] MEDS ORDERED: acetaminophen 325mg tablet PO PRN ×2 (03:25)
[2023-08-24] MEDS ORDERED: LidoCAINE 2% Topical Jelly 11mL syringe TOP ONE (03:25)
[2023-08-24] MEDS ORDERED: magnesium hydroxide 30ml (MOM) UD suspension PO PRN (03:25)
[2023-08-24] MEDS ORDERED: normal saline 1000ml 1,000 ML IV SCH (03:25)
--- NOTE | 2023-08-24 05:10 | NUR ---
ZERO OUTPUT INTO CONDOM CATH. PT HAS ANOTHER EPISODE OF COFFEE GROUND EMESIS.
--- NOTE | 2023-08-24 06:15 | NUR ---
Report received from Starla FISHER in ED.
--- NOTE | 2023-08-24 06:18 | NUR ---
josesito FISHER called for pt update. informed of current plan of care and admission status.
[2023-08-24 06:31] LABS: OCCULT BLOOD STOOL POSITIVE (Neg)
--- NOTE | 2023-08-24 07:00 | NUR ---
Sheriff aguilar continuously remains at bedside.
--- NOTE | 2023-08-24 07:16 | NUR ---
After pt vomited for 2nd time he was medicated W/ Zofram
[2023-08-24] MEDS ORDERED: pantoprazole 40mg Tablet.DR PO SCH (07:30)
--- NOTE | 2023-08-24 07:35 | NUR ---
NGT 14 Fr. inserted by Danish FISHER, and 200 ml brown gastric fluid measured. Pt stated he felt better.
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
[2023-08-24] MEDS: ondansetron/PF 4mg/2ml inj IV PRN (08:27)
[2023-08-24] MEDS: pantoprazole 40MG/NS 100ML BAG 100 ML IV SCH (08:29)
[2023-08-24] MEDS: piperacillin/tazo 3.375gm/50ml 50 ML IV SCH ×3 (08:35→23:57)
[2023-08-24] MEDS ORDERED: MECL-302 PO (08:58)
[2023-08-24] MEDS ORDERED: ACET-1008 PO (09:12)
[2023-08-24] MEDS ORDERED: LOPE2TAB25 PO (09:14)
--- NOTE | 2023-08-24 10:59 | NUR ---
Phleb at bedside to draw Stat labs.
[2023-08-24] MEDS ORDERED: ringers solution, lacted 1,000 ML IV ONE ×2 (11:05→11:10)
--- NOTE | 2023-08-24 11:26 | NUR ---
Dr. Jarrell has seen pt, blood work was drawn, and LR boluses are infusing.Pt is restful and denies pain.
[2023-08-24 11:40] LABS: HEMOGLOBIN 15.7 g/dl (14.0-17.9); MEAN CORPUSCULAR HEMOGLOBIN 28.9 PG (27.0-31.0); MEAN PLATELET VOLUME 7.7 FL (7.4-10.4)
[2023-08-24 11:41] LABS: BASOPHILS # (AUTO) 0.1 X10'3 (0-0.2); BASOPHILS % (AUTO) 0.2 % (0-1); EOSINOPHILS % (AUTO) 0.1 % (0-6); HEMATOCRIT 47.6 % (42.0-52.0); LYMPHOCYTES # (AUTO) 1.8 X10'3 (1.1-4.8); LYMPHOCYTES % (AUTO) 6.4 % (21-51); MEAN CORPUSCULAR HGB CONC 33.1 g/dL (33.0-36.5); MEAN CORPUSCULAR VOLUME 87.4 FL (78-98); NEUTROPHILS # (AUTO) 22.4 X10'3 (1.8-7.7); NEUTROPHILS % (AUTO) 82.3 % (42-75); PLATELET COUNT 427 X10'3 (140-440); RED BLOOD COUNT 5.44 X10'6 (4.70-6.10); RED CELL DISTRIBUTION WIDTH 13.6 % (11.5-14.5)
[2023-08-24 11:45] LABS: ALANINE AMINOTRANSFERASE 24 U/L (12-78); ALBUMIN 3.9 G/DL (3.4-5.0); ALBUMIN/GLOBULIN RATIO 1.1 (1.1-1.5); ALKALINE PHOSPHATASE 81 IU/L (46-116); ANION GAP 8 (8-16); ASPARTATE AMINO TRANSFERASE 25 U/L (10-37); BILIRUBIN,TOTAL 0.9 MG/DL (0.1-1.0); BLOOD UREA NITROGEN 27 MG/DL (7-18); CALCIUM 8.7 MG/DL (8.5-10.1); CHLORIDE 103 MMOL/L (99-107); CREATININE 1.42 MG/DL (0.60-1.10); GLUCOSE 115 MG/DL (70-104); MAGNESIUM 2.5 MG/DL (1.5-2.4); PHOSPHORUS 3.1 MG/DL (2.3-4.5); SODIUM 146 MMOL/L (135-145); TOTAL CARBON DIOXIDE 35.1 MMOL/L (24-32); TOTAL PROTEIN 7.6 G/DL (6.4-8.2); eCRCL 67 ML/MIN; eGFR 56 ML/MIN
[2023-08-24 11:51] LABS: WHITE BLOOD COUNT 27.3 X10'3 (4.5-11.0)
[2023-08-24 11:52] LABS: POTASSIUM 2.9 MMOL/L (3.5-5.1)
[2023-08-24] MEDS ORDERED: ringers solution, lactated 500ml IV solution IV SCH (12:00)
[2023-08-24] MEDS ORDERED: VANCOMYCIN 1,500MG in NS 300ml IVPB IV ONE (12:00)
--- NOTE | 2023-08-24 12:05 | NUR ---
Pt did void in condom cath; U/A and tox screen sent to lab.
[2023-08-24 12:11] LABS: BILIRUBIN,URINE SMALL (Neg); CLARITY,URINE CLOUDY (Clear); COLOR,URINE YELLOW (Yellow); GLUCOSE, URINE NEGATIVE (Neg); KETONES,URINE 15 mg/dl (Neg); LEUKOCYTE ESTERASE ,URINE NEGATIVE (Neg); NITRITES, URINE NEGATIVE (Neg); OCCULT BLOOD,URINE MODERATE (Neg); PROTEIN,URINE 100 mg/dl (Neg); UROBILINOGEN,URINE 0.2 E.U/dL (0.2-1.0)
[2023-08-24 12:12] LABS: UA COLLECTION TYPE NON-SPECIFIED
[2023-08-24 12:19] LABS: URINE AMPHETAMINE SCREEN NEGATIVE (Neg); URINE BARBITUATE SCREEN NEGATIVE (Neg); URINE BENZODIAZEPINES SCREEN NEGATIVE (Neg); URINE CANNABINOID SCREEN POSITIVE (Neg); URINE COCAINE SCREEN NEGATIVE (Neg); URINE OPIATE SCREEN NEGATIVE (Neg); URINE PHENCYCLIDINE SCREEN NEGATIVE (Neg)
[2023-08-24 12:21] LABS: HYALINE CASTS >30 /LPF (NEGATIVE)
[2023-08-24 12:22] LABS: BACTERIA,URINE 1+ /HPF (Neg)
[2023-08-24 12:23] LABS: COARSE GRANULAR CAST 0-3 /LPF (NEGATIVE); SQUAMOUS EPITHELIAL CELL,UR FEW /LPF (FEW)
[2023-08-24 12:58] LABS: PLATELET ESTIMATE NORMAL; TOTAL CELLS COUNTED 100
[2023-08-24 12:59] LABS: HYPERSEGMENTED NEUTROPHILS FEW; LARGE PLATELETS FEW
--- NOTE | 2023-08-24 13:10 | NUR ---
Dr. Alba and resident at bedside to see pt. Info reviewed w/ MDs.
[2023-08-24] MEDS ORDERED: potassium Cl 20 mEq SR tablet PO PRN ×3 (13:30→15:00)
[2023-08-24] MEDS ORDERED: magnesium 4gm in 100ml NS 100 ML IV PRN (13:30)
[2023-08-24] MEDS ORDERED: magnesium 2GM in 50ml NS 50 ML IV PRN (13:30)
[2023-08-24] MEDS ORDERED: magnesium Cl slow-release 64mg tablet PO PRN (13:30)
--- NOTE | 2023-08-24 13:40 | NUR ---
PT stopped to see pt, and will f/u tomorrow checking on pt's alertness.
[2023-08-24] MEDS: ringers solution, lacted 1,000 ML IV SCH ×2 (13:46→19:33)
[2023-08-24] MEDS ORDERED: potassium Cl 40MEQ/1/2NS 520ml 520 ML IV ONE ×2 (15:00→19:00)
[2023-08-24] MEDS ORDERED: potassium Cl 40MEQ/1/2NS 520ml 520 ML IV PRN (15:00)
--- NOTE | 2023-08-24 16:00 | NUR ---
Due for the need for K+ replacement, a 2nd SL was necessary and placed in REJ w/ assistance from Marilyn FISHER. IV potassium and Zosyn are now infusing.
--- NOTE | 2023-08-24 17:36 | NUR ---
Pt is on his back and mouth breathing. SpO2 decreased to 85%; O2 NC 2L. SpO2 to 95%. Pt remains tachypneic
--- NOTE | 2023-08-24 18:00 | NUR ---
Got report from Mae, all questions answered.
--- NOTE | 2023-08-24 18:20 | NUR ---
Report given to Musa FISHER. Pt resting comfortably.
[2023-08-24] MEDS: HYDROmorphone inj. 0.5 MG/0.5 ML DISP.SYRIN IV PRN ×2 (18:29→21:07)
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
[2023-08-24] MEDS ORDERED: BUPR1FIL3 SL (18:56)
[2023-08-24 19:12] LABS: ALBUMIN 3.5 G/DL (3.4-5.0); ANION GAP 9 (8-16); BLOOD UREA NITROGEN 15 MG/DL (7-18); BUN/CREATININE RATIO 15.5 (10.0-20.0); CALCIUM 8.7 MG/DL (8.5-10.1); CHLORIDE 105 MMOL/L (99-107); CREATININE 0.97 MG/DL (0.60-1.10); GLUCOSE 109 MG/DL (70-104); MAGNESIUM 2.2 MG/DL (1.5-2.4); POTASSIUM 3.3 MMOL/L (3.5-5.1); SODIUM 144 MMOL/L (135-145); TOTAL CARBON DIOXIDE 30.3 MMOL/L (24-32); eCRCL 98 ML/MIN; eGFR 87 ML/MIN
[2023-08-24] MEDS: K and/or MAG REPLACEMENT MC SCH (19:46)
[2023-08-24] MEDS ORDERED: DEXMEDETOMIDINE IN 0.9 % NACL 50 ML IV SCH (19:50)
--- NOTE | 2023-08-24 20:00 | NUR ---
Did rounds with Dr. Tatum. Discussed all care, assessments and diagnostic data. He would like to add precedex for now given the pt was not started on suboxone.
[2023-08-24] MEDS: DEXMEDETOMIDINE 400MCG in NORMAL SALINE 100ml IV SCH (20:17)
[2023-08-25] VITALS (25 sets, daily range): BP systolic 100–135; BP diastolic 56–80; PULSE 61–83; RESP 19–26; O2SAT 92–100
--- NOTE | 2023-08-25 01:15 | NUR ---
Notified Dr. Tatum of positive occult blood result. Pt has high hgb/hct, ngt clearing up and no bms, already on protonix iv daily. no new orders.
[2023-08-25 02:06] LABS: ANION GAP 6 (8-16); BLOOD UREA NITROGEN 13 MG/DL (7-18); BUN/CREATININE RATIO 15.7 (10.0-20.0); CALCIUM 8.5 MG/DL (8.5-10.1); CHLORIDE 107 MMOL/L (99-107); CREATININE 0.83 MG/DL (0.60-1.10); GLUCOSE 104 MG/DL (70-104); MAGNESIUM 2.1 MG/DL (1.5-2.4); POTASSIUM 3.4 MMOL/L (3.5-5.1); SODIUM 143 MMOL/L (135-145); TOTAL CARBON DIOXIDE 29.8 MMOL/L (24-32); eCRCL 114 ML/MIN; eGFR > 90 ML/MIN
[2023-08-25 02:15] LABS: BASOPHILS % (AUTO) 0.1 % (0-1); EOSINOPHILS % (AUTO) 0 % (0-6); HEMATOCRIT 36.6 % (42.0-52.0); HEMOGLOBIN 12.3 g/dl (14.0-17.9); LYMPHOCYTES # (AUTO) 1.9 X10'3 (1.1-4.8); LYMPHOCYTES % (AUTO) 10.6 % (21-51); MEAN CORPUSCULAR HEMOGLOBIN 29.4 PG (27.0-31.0); MEAN CORPUSCULAR HGB CONC 33.6 g/dL (33.0-36.5); MEAN CORPUSCULAR VOLUME 87.5 FL (78-98); MEAN PLATELET VOLUME 7.5 FL (7.4-10.4); MONOCYTES # (AUTO) 1.7 X10'3 (0-0.9); MONOCYTES % (AUTO) 9.5 % (2-12); NEUTROPHILS # (AUTO) 14.4 X10'3 (1.8-7.7); NEUTROPHILS % (AUTO) 79.8 % (42-75); PLATELET COUNT 333 X10'3 (140-440); RED BLOOD COUNT 4.18 X10'6 (4.70-6.10); RED CELL DISTRIBUTION WIDTH 13.4 % (11.5-14.5); WHITE BLOOD COUNT 18.1 X10'3 (4.5-11.0)
[2023-08-25] MEDS: ringers solution, lacted 1,000 ML IV SCH ×2 (02:25→08:15)
[2023-08-25] MEDS: HYDROmorphone inj. 0.5 MG/0.5 ML DISP.SYRIN IV PRN (04:23)
[2023-08-25] MEDS: potassium Cl 40MEQ/1/2NS 520ml 520 ML IV PRN ×2 (04:23→19:03)
[2023-08-25] MEDS: DEXMEDETOMIDINE 400MCG in NORMAL SALINE 100ml IV SCH (04:24)
[2023-08-25] MEDS: ondansetron/PF 4mg/2ml inj IV PRN ×3 (04:32→18:34)
--- NOTE | 2023-08-25 06:30 | NUR ---
Patient in room ICU 2044. I have received report from PHILLIP Vigil and had the opportunity to ask questions and assume patient care.
[2023-08-25] MEDS: pantoprazole 40MG/NS 100ML BAG 100 ML IV SCH (07:37)
[2023-08-25] MEDS ORDERED: CefTRIAXone/D5W-Rocephin 1gm 50 ML IV SCH (08:00)
[2023-08-25] MEDS: K and/or MAG REPLACEMENT MC SCH ×2 (08:00→18:44)
[2023-08-25] MEDS: piperacillin/tazo 3.375gm/50ml 50 ML IV SCH ×3 (08:15→23:45)
[2023-08-25] MEDS: morphine 4 MG/ML inj SYRINge IV PRN ×2 (12:04→18:35)
--- NOTE | 2023-08-25 15:21 | NUR ---
Pt has had difficulty voiding since prior to admit. Pt claims history of enlarged prostate. Discussed with Dr Jarrell he stated that pt needs a urology consult.
[2023-08-25] MEDS ORDERED: LidoCAINE 2% Topical Jelly 11mL syringe TOP ONE (16:10)
[2023-08-25 16:51] LABS: BILIRUBIN,URINE NEGATIVE (Neg); CLARITY,URINE SLIGHTLY CLOUDY (Clear); COLOR,URINE YELLOW (Yellow); GLUCOSE, URINE NEGATIVE (Neg); KETONES,URINE 40 mg/dl (Neg); LEUKOCYTE ESTERASE ,URINE NEGATIVE (Neg); NITRITES, URINE NEGATIVE (Neg); OCCULT BLOOD,URINE TRACE-INTACT (Neg); PH,URINE 8.5 (4.8-8.0); PROTEIN,URINE TRACE mg/dl (Neg); UROBILINOGEN,URINE 0.2 E.U/dL (0.2-1.0)
[2023-08-25 16:56] LABS: UA COLLECTION TYPE FOLEY CATH
[2023-08-25 16:57] LABS: MUCUS STRANDS FEW /LPF (Neg)
[2023-08-25 16:58] LABS: BACTERIA,URINE 1+ /HPF (Neg); SQUAMOUS EPITHELIAL CELL,UR FEW /LPF (FEW); WBC,URINE 0-4 /HPF (0-4)
--- NOTE | 2023-08-25 18:11 | NUR ---
Problems reprioritized. Patient report given, questions answered & plan of care reviewed with PHILLIP Cage.
--- NOTE | 2023-08-25 18:16 | NUR ---
Patient in room ICU 2044. I have received report from Wayne FISHER and had the opportunity to ask questions and assume patient care.
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
[2023-08-25] MEDS ORDERED: tamsulosin 0.4mg capsule PO SCH (21:00)
[2023-08-26] VITALS (12 sets, daily range): BP systolic 110–127; BP diastolic 61–90; PULSE 62–85; RESP 20–26; O2SAT 94–97
[2023-08-26] MEDS: morphine 4 MG/ML inj SYRINge IV PRN (01:57)
--- NOTE | 2023-08-26 02:13 | NUR ---
Custody Nurse called for update. Voiced concern again about waist shackles and skin breakdown as well as possible delirium from lack of sleep from frequent repositioning, she will pass it on to the [place] on watch.
[2023-08-26 06:01] LABS: BASOPHILS % (AUTO) 0.2 % (0-1); EOSINOPHILS % (AUTO) 0.1 % (0-6); HEMATOCRIT 33.6 % (42.0-52.0); HEMOGLOBIN 11.4 g/dl (14.0-17.9); LYMPHOCYTES # (AUTO) 2.1 X10'3 (1.1-4.8); LYMPHOCYTES % (AUTO) 19.4 % (21-51); MEAN CORPUSCULAR HEMOGLOBIN 29.8 PG (27.0-31.0); MEAN CORPUSCULAR HGB CONC 34.1 g/dL (33.0-36.5); MEAN CORPUSCULAR VOLUME 87.4 FL (78-98); MEAN PLATELET VOLUME 8.2 FL (7.4-10.4); MONOCYTES # (AUTO) 1.1 X10'3 (0-0.9); NEUTROPHILS # (AUTO) 7.7 X10'3 (1.8-7.7); NEUTROPHILS % (AUTO) 70.3 % (42-75); PLATELET COUNT 293 X10'3 (140-440); RED BLOOD COUNT 3.84 X10'6 (4.70-6.10); RED CELL DISTRIBUTION WIDTH 13.1 % (11.5-14.5)
--- NOTE | 2023-08-26 06:10 | NUR ---
Problems reprioritized. Patient report given, questions answered & plan of care reviewed with Wayne FISHER.
[2023-08-26 06:52] LABS: MAGNESIUM 1.8 MG/DL (1.5-2.4); POTASSIUM 3.2 MMOL/L (3.5-5.1)
[2023-08-26] MEDS: K and/or MAG REPLACEMENT MC SCH (08:00)
[2023-08-26 08:39] LABS: ALANINE AMINOTRANSFERASE 22 U/L (12-78); ALBUMIN 3.1 G/DL (3.4-5.0); ALKALINE PHOSPHATASE 55 IU/L (46-116); ANION GAP 10 (8-16); ASPARTATE AMINO TRANSFERASE 14 U/L (10-37); BILIRUBIN,TOTAL 0.9 MG/DL (0.1-1.0); BLOOD UREA NITROGEN 6 MG/DL (7-18); BUN/CREATININE RATIO 8.2 (10.0-20.0); CALCIUM 8.5 MG/DL (8.5-10.1); CHLORIDE 102 MMOL/L (99-107); CREATININE 0.73 MG/DL (0.60-1.10); GLUCOSE 108 MG/DL (70-104); SODIUM 136 MMOL/L (135-145); TOTAL CARBON DIOXIDE 23.9 MMOL/L (24-32); TOTAL PROTEIN 6.3 G/DL (6.4-8.2); eCRCL 130 ML/MIN; eGFR > 90 ML/MIN
[2023-08-26] MEDS: pantoprazole 40MG/NS 100ML BAG 100 ML IV SCH (08:54)
[2023-08-26] MEDS: ondansetron/PF 4mg/2ml inj IV PRN (09:05)
[2023-08-26] MEDS ORDERED: tamsulosin capsule PO (11:22)
[2023-08-26] MEDS ORDERED: vancomycin/NS 1 GM ADD-VANTAGE 250 ML IV SCH (12:00)
--- NOTE | 2023-08-26 12:05 | NUR ---
Pt discharged back to [facility] via wheelchair with [facility] transport guards. Education provided on spangler catheter and new Flomax prescription.
[2023-08-30] MEDS ORDERED: VANCOMYCIN LEVEL IV ONE (11:30)
== END 2023-08-26 12:00 | DRG 871 ==
LOC: EEVIPCON 22:18 → ER 22:18 → ED HOLD 08-24 03:28 → EDBEDREQ 08-24 05:51 → ICU 2S 08-24 07:00
PROVIDERS: ADMIT Surgery Surgical Critical Care; ATTEND Surgery Surgical Critical Care
PROC: 0T9B80Z Drainage of Bladder with Drainage Device, Via Natural or Artificial Opening Endoscopic (ICD-10-PCS; principal; 2023-08-25)
PROC: 0D9670Z Drainage of Stomach with Drainage Device, Via Natural or Artificial Opening (ICD-10-PCS; 2023-08-25)
DX: A41.9 Sepsis, unspecified organism (principal); N17.0 Acute kidney failure with tubular necrosis; F11.13 Opioid abuse with withdrawal; I47.19 Other supraventricular tachycardia; E86.0 Dehydration; E87.6 Hypokalemia; R79.89 Other specified abnormal findings of blood chemistry; R33.9 Retention of urine, unspecified; F10.10 Alcohol abuse, uncomplicated; Z90.49 Acquired absence of other specified parts of digestive tract; Z87.440 Personal history of urinary (tract) infections
CPT/HCPCS: 36415; 71045; 76770; 80048; 80053; 80305; 80320; 81001; 82140; 82272; 82948; 83605; 83735; 84100; 84132; 84145; 84484; 85007; 85025; 85610; 86885; 86900; 86901; 87040; 87081; 93306; 99285; A4314; A4333; A4340; A4349; A4615; A4620; A6213; A6446; C1758; C9113; G0378; J0696; J1170; J2060; J2270; J2405; J2543; J3370; J3411; J3480; J3490; J7030; J7040; J7120

== ENCOUNTER 2024-09-25 01:29 | Emergency (ER) | payer MEDICAID ==
[~2024-09-25] VITALS: Ht 182.9 cm; Wt 70.3 kg
[~2024-09-25 01:29] MED LIST changes: +ARIP5TAB53 PO; +BUPR-94 PO; +BUPR1FIL20 SL; -BUPR1FIL3 SL; +HYDR-3686 PO; +LISD40CA PO
[2024-09-25] MEDS ORDERED: BUPR-561 PO (02:14)
[2024-09-25 02:16] LABS: BASOPHILS # (AUTO) 0.1 X10'3 (0-0.2); BASOPHILS % (AUTO) 0.7 % (0-1); EOSINOPHILS # (AUTO) 0.1 X10'3 (0-0.9); EOSINOPHILS % (AUTO) 0.7 % (0-6); HEMATOCRIT 42.5 % (42.0-52.0); HEMOGLOBIN 14.7 g/dl (14.0-17.9); LYMPHOCYTES # (AUTO) 2.2 X10'3 (1.1-4.8); LYMPHOCYTES % (AUTO) 27.5 % (21-51); MEAN CORPUSCULAR HEMOGLOBIN 32.1 PG (27.0-31.0); MEAN CORPUSCULAR HGB CONC 34.5 g/dL (33.0-36.5); MEAN PLATELET VOLUME 7.4 FL (7.4-10.4); MONOCYTES # (AUTO) 0.7 X10'3 (0-0.9); MONOCYTES % (AUTO) 8.6 % (2-12); NEUTROPHILS # (AUTO) 5.1 X10'3 (1.8-7.7); NEUTROPHILS % (AUTO) 62.5 % (42-75); PLATELET COUNT 407 X10'3 (140-440); RED BLOOD COUNT 4.57 X10'6 (4.70-6.10); RED CELL DISTRIBUTION WIDTH 13.9 % (11.5-14.5); WHITE BLOOD COUNT 8.2 X10'3 (4.5-11.0)
[2024-09-25 02:26] LABS: BILIRUBIN,URINE NEGATIVE (Neg); CLARITY,URINE CLEAR (Clear); COLOR,URINE YELLOW (Yellow); GLUCOSE, URINE NEGATIVE (Neg); KETONES,URINE TRACE mg/dl (Neg); LEUKOCYTE ESTERASE ,URINE NEGATIVE (Neg); NITRITES, URINE NEGATIVE (Neg); OCCULT BLOOD,URINE NEGATIVE (Neg); PROTEIN,URINE NEGATIVE (Neg); UROBILINOGEN,URINE 0.2 E.U/dL (0.2-1.0)
[2024-09-25] MEDS ORDERED: ARIP5TAB53 PO (02:33)
[2024-09-25 02:38] LABS: ALBUMIN 4.1 G/DL (3.4-5.0); ANION GAP 12 (8-16); BLOOD UREA NITROGEN 8 MG/DL (7-18); BUN/CREATININE RATIO 10.4 (10.0-20.0); CHLORIDE 106 MMOL/L (99-107); CREATININE 0.77 MG/DL (0.60-1.10); ETHANOL 15 MG/DL (<10); GLUCOSE 81 MG/DL (70-104); POTASSIUM 3.6 MMOL/L (3.5-5.1); SODIUM 144 MMOL/L (135-145); THYROID STIMULATING HORMONE 1.11 ulU/ml (0.34-4.50); TOTAL CARBON DIOXIDE 26.4 MMOL/L (24-32); eCRCL 129 ML/MIN; eGFR > 90 ML/MIN
[2024-09-25 02:39] LABS: UA COLLECTION TYPE CLN CATCH MIDSTREAM
[2024-09-25] MEDS ORDERED: HYDR-3686 PO (02:39)
[2024-09-25 02:52] LABS: URINE AMPHETAMINE SCREEN POSITIVE (Neg); URINE BARBITUATE SCREEN NEGATIVE (Neg); URINE BENZODIAZEPINES SCREEN NEGATIVE (Neg); URINE CANNABINOID SCREEN POSITIVE (Neg); URINE COCAINE SCREEN NEGATIVE (Neg); URINE METHADONE SCREEN NEGATIVE (Neg); URINE OPIATE SCREEN NEGATIVE (Neg); URINE PHENCYCLIDINE SCREEN NEGATIVE (Neg)
[2024-09-25 06:26] VITALS: BP 106/69; PULSE 85; RESP 16; TEMP 96.2; O2SAT 98
[2024-09-25] MEDS: aripiprazole 5mg tablet PO SCH (08:00)
[2024-09-25] MEDS: lisdexamfetamine dimesylate 10mg capsule PO SCH (08:05)
[2024-09-25] MEDS: buprenorphine/naloxone 8MG-2MG SUBlingual film SL SCH (08:06)
[2024-09-25] MEDS: BUPROPION HCL 150MG XL 24 HR 150 MG TAB PO SCH (08:06)
[2024-09-25] MEDS: hydrOXYzine 25 MG tablet PO SCH (08:06)
== END 2024-09-25 12:20 | disposition still patient (30) ==
LOC: ER 01:30
DX: R45.851 Suicidal ideations (principal); Z90.49 Acquired absence of other specified parts of digestive tract; F11.90 Opioid use, unspecified, uncomplicated; Z79.899 Other long term (current) drug therapy; Z20.822 Contact with and (suspected) exposure to COVID-19
CPT/HCPCS: 36415; 80048; 80305; 80320; 81003; 84443; 85025; 87811; 99285; Q0177

== ENCOUNTER 2024-10-09 21:36 | Emergency (ER) | payer MEDICAID ==
[~2024-10-09] VITALS: Ht 182.9 cm; Wt 65.0 kg
[~2024-10-09 21:36] MED LIST changes: +BUPR-561 PO; -BUPR-94 PO
[2024-10-09 23:41] LABS: BASOPHILS # (AUTO) 0.1 X10'3 (0-0.2); BASOPHILS % (AUTO) 0.7 % (0-1); EOSINOPHILS # (AUTO) 0.1 X10'3 (0-0.9); EOSINOPHILS % (AUTO) 1.3 % (0-6); HEMATOCRIT 40.1 % (42.0-52.0); HEMOGLOBIN 13.5 g/dl (14.0-17.9); LYMPHOCYTES # (AUTO) 2.4 X10'3 (1.1-4.8); LYMPHOCYTES % (AUTO) 26.6 % (21-51); MEAN CORPUSCULAR HEMOGLOBIN 31.4 PG (27.0-31.0); MEAN CORPUSCULAR HGB CONC 33.6 g/dL (33.0-36.5); MEAN CORPUSCULAR VOLUME 93.3 FL (78-98); MONOCYTES # (AUTO) 0.8 X10'3 (0-0.9); MONOCYTES % (AUTO) 9.6 % (2-12); NEUTROPHILS # (AUTO) 5.5 X10'3 (1.8-7.7); NEUTROPHILS % (AUTO) 61.8 % (42-75); PLATELET COUNT 388 X10'3 (140-440); RED CELL DISTRIBUTION WIDTH 13.5 % (11.5-14.5); WHITE BLOOD COUNT 8.9 X10'3 (4.5-11.0)
[2024-10-09 23:54] LABS: BILIRUBIN,URINE NEGATIVE (Neg); CLARITY,URINE CLEAR (Clear); COLOR,URINE YELLOW (Yellow); GLUCOSE, URINE NEGATIVE (Neg); KETONES,URINE NEGATIVE (Neg); LEUKOCYTE ESTERASE ,URINE NEGATIVE (Neg); NITRITES, URINE NEGATIVE (Neg); OCCULT BLOOD,URINE NEGATIVE (Neg); PROTEIN,URINE NEGATIVE (Neg); UROBILINOGEN,URINE 0.2 E.U/dL (0.2-1.0)
[2024-10-09 23:55] LABS: ALANINE AMINOTRANSFERASE 58 U/L (12-78); ALBUMIN 3.6 G/DL (3.4-5.0); ALKALINE PHOSPHATASE 89 IU/L (46-116); ANION GAP 7 (8-16); ASPARTATE AMINO TRANSFERASE 23 U/L (10-37); BILIRUBIN,TOTAL 0.2 MG/DL (0.1-1.0); BLOOD UREA NITROGEN 12 MG/DL (7-18); BUN/CREATININE RATIO 18.2 (10.0-20.0); CALCIUM 8.3 MG/DL (8.5-10.1); CHLORIDE 104 MMOL/L (99-107); CREATININE 0.66 MG/DL (0.60-1.10); GLUCOSE 112 MG/DL (70-104); POTASSIUM 3.4 MMOL/L (3.5-5.1); SODIUM 140 MMOL/L (135-145); TOTAL CARBON DIOXIDE 29.3 MMOL/L (24-32); TOTAL PROTEIN 7.1 G/DL (6.4-8.2); eCRCL 140 ML/MIN; eGFR > 90 ML/MIN
[2024-10-10] MEDS ORDERED: SERT-432 PO
[2024-10-10] MEDS ORDERED: LORA-268 PO
[2024-10-10] MEDS ORDERED: LISD20CA PO
[2024-10-10] MEDS ORDERED: PROP10TA10 PO
[2024-10-10] MEDS ORDERED: ALBU10.7 INH
[2024-10-10] MEDS ORDERED: QUET50TA24 PO
[2024-10-10 00:01] LABS: UA COLLECTION TYPE CLN CATCH MIDSTREAM
[2024-10-10 00:02] LABS: URINE AMPHETAMINE SCREEN NEGATIVE (Neg); URINE BARBITUATE SCREEN NEGATIVE (Neg); URINE BENZODIAZEPINES SCREEN NEGATIVE (Neg); URINE CANNABINOID SCREEN POSITIVE (Neg); URINE COCAINE SCREEN NEGATIVE (Neg); URINE METHADONE SCREEN NEGATIVE (Neg); URINE OPIATE SCREEN NEGATIVE (Neg); URINE PHENCYCLIDINE SCREEN NEGATIVE (Neg)
[2024-10-10] MEDS: LORazepam 0.5 MG tablet PO SCH (08:00)
[2024-10-10] MEDS: propranolol 10mg tablet PO SCH (08:00)
[2024-10-10] MEDS: buprenorphine/naloxone 8MG-2MG SUBlingual film SL SCH (08:12)
[2024-10-10 17:36] VITALS: BP 104/58; PULSE 62; RESP 16; TEMP 97.6; O2SAT 99
[2024-10-10] MEDS ORDERED: QUEtiapine 25mg tablet PO SCH (21:00)
== END 2024-10-10 18:21 ==
LOC: ER 21:37
DX: R45.851 Suicidal ideations (principal); Z90.49 Acquired absence of other specified parts of digestive tract; Z79.899 Other long term (current) drug therapy; F11.90 Opioid use, unspecified, uncomplicated; Z20.822 Contact with and (suspected) exposure to COVID-19
CPT/HCPCS: 36415; 80053; 80305; 81003; 85025; 87811; 99285; A6449